=== PATIENT | male | born 1995 | race Caucasian/White ===

== ENCOUNTER 2022-09-22 12:11 | Emergency (ER) | payer MEDICAID ==
[~2022-09-22] VITALS: Ht 170.2 cm; Wt 71.0 kg
[2022-09-22 12:32] VITALS: BP 125/71
[2022-09-22] MEDS ORDERED: DEXAMETHASONE 4MG/ML 1ML VIAL IV ONE (13:45)
[2022-09-22 14:18] LABS: BASOPHILS % 0.4 % (0.0-2.0); EOSINOPHILS % 1.7 % (0.0-5.0); HEMATOCRIT. 44.4 % (42.0-52.0); HEMOGLOBIN. 15.1 g/dL (14.0-18.0); LYMPHOCYTES % 38.7 % (20.0-50.0); MEAN CORPUSCULAR HEMOGLOBIN 29.9 pg (28.0-32.0); MEAN PLATELET VOLUME 9.4 fl (7.4-10.4); MONOCYTES % 7.9 % (2.0-8.0); NEUTROPHILS % 51.3 % (40.0-76.0); PLATELET 175 x1000/uL (130-400); RED BLOOD CELL COUNT 5.04 mill/uL (4.7-6.1); RED CELL DISTRIBUTION WIDTH 13.5 % (11.6-14.6)
[2022-09-22 14:26] LABS: CHLORIDE 108 mEq/L (98-107)
[2022-09-22] MEDS ORDERED: IOHEXOL-300 100 ML BOTTLE ONE (16:52)
[2022-09-22] MEDS ORDERED: KETOROLAC 15MG/ML VIAL IV ONE (17:30)
[2022-09-22] MEDS ORDERED: XLV MT (17:35)
== END 2022-09-22 18:17 | disposition home or self-care (01) ==
LOC: ER 12:11
DX: J02.9 Acute pharyngitis, unspecified (principal)
CPT/HCPCS: 36415; 70491; 80048; 85025; 96374; 99285; J1100; Q9967